=== PATIENT | female | born 1940 | race Caucasian/White ===

== ENCOUNTER 2018-08-03 23:20 | Inpatient (IN) | payer OTHER ==
[~2018-08-03] VITALS: Ht 144.8 cm; Wt 47.6 kg
[2018-08-03 23:22] VITALS: BP 193/83
[2018-08-03 23:43] LABS: HEMATOCRIT 29.5 % (37.0-47.0); HEMOGLOBIN 9.2 gm/dL (12.0-15.0); MCH 22.6 pg (26.0-34.0); MCHC 31.2 g/dL (28.0-37.0); MCV 72.5 fL (80.0-100.0); RBC 4.07 mil/uL (4.20-5.00); RDW 19.3 % (10.5-14.5)
[2018-08-03 23:48] LABS: CREATININE 1.2 mg/dL (0.6-1.0); POTASSIUM 3.6 mmol/L (3.5-5.1)
[2018-08-03 23:53] LABS: BE(vivo) 4.3 mmol/L (-2 to +3); HCO3 29.1 mmol/L (22.0-26.0); PCO2 44.7 mmHg (35.0-45.0); PO2 246.5 mmHg (80.0-100.0); pH 7.432 (7.360-7.450); sO2 99.6 % (92.0-98.0)
[2018-08-03 23:55] LABS: TROPONIN-I 0.12 ng/mL (<0.06)
[2018-08-04 02:10] VITALS: BP 156/62
[2018-08-04] MEDS ORDERED: CELEXA20 MG PO (02:40)
[2018-08-04] MEDS ORDERED: LASIX 20 MG TAB20 MG PO (02:50)
[2018-08-04] MEDS ORDERED: ASPIR 8181 MG PO (02:50)
[2018-08-04] MEDS ORDERED: PRESERVISION L1 EACH PO (02:50)
[2018-08-04] MEDS ORDERED: STIOLTO RESPIMAT4 GM PO (02:51)
[2018-08-04] MEDS ORDERED: VITAMIN D1000 UNI1 PO (02:51)
[2018-08-04] MEDS ORDERED: VENTOLIN HFA 1818 GM INH (02:51)
[2018-08-04] MEDS ORDERED: CULTURELLE1 EACH PO (02:52)
[2018-08-04] MEDS ORDERED: CENTRUM SILVER1 EAC2 PO (02:52)
[2018-08-04] MEDS ORDERED: PAXIL10 MG PO (02:52)
[2018-08-04] MEDS ORDERED: SUPER B-50 COM1 EACH PO (02:52)
--- NOTE | 2018-08-04 03:32 | NUR ---
PATIENTS CARES WERE ASSUMED AT [facility]PRON 0300 FROM ER. PATIENT WAS ASSESSED ANDADMITTED TO THE FLOOR. PATIENT STATES SHE ONLY HAS PAIN IN HER LEFT ANKLE RATES 2/10. HOURLY ROUNDING WAS DONE. YELLOW SOCKES WERE GIVEN. BED IS IN LOW AND LOCKED POSITION. THE BED ALARM IS ON. PAPER WORK IS SIGNED.
[2018-08-04 03:37] VITALS: BP 152/56
[2018-08-04 04:13] LABS: ALBUMIN 2.8 g/dL (3.4-5.0); DIRECT BILIRUBIN < 0.1 mg/dL (<0.1-0.3); SGOT 57 U/L (15-37); SGPT 22 U/L (30-65); TOTAL BILIRUBIN 0.4 mg/dL (<0.1-1.0); TOTAL PROTEIN 8.1 g/dL (6.4-8.2)
[2018-08-04 07:01] VITALS: BP 136/67
--- NOTE | 2018-08-04 07:56 | EKG ---
[address] [address] ELECTROCARDIOGRAM REPORT Name: HERACLIO NIEVES Room #: 200-I ADM IN M.R.#: [id number] ������������������ Admission: 08/04/18 ������������������ Attend Phys: Moses Pace MD Discharge: ������������������ Date of : 44 Report #: [id number] ����������������������������������������������������������������� [id number] THIS REPORT FOR: //name// [facility] ED Test Date: 2018-08-03 Test Time: 23:31:16 Pat Name: HERACLIO NIEVES Department: Room: 200 Gender: F Sales Development Consultant: KAYY : 1940 Requested By: Owen Montalvo Order Number: [id number] MD: Jaxon Koo Measurements Intervals [place] Rate: 108 P: 81 SD: 118 QRS: 19 QRSD: 135 T: 99 QT: 384 QTc: 515 Interpretive Statements Sinus tachycardia Left bundle branch block No previous ECG available for comparison Electronically Signed On 08-04-2018 7:56:25 CDT by Jaxon Koo [email or web address] ��������������������������������������������� <ELECTRONICALLY SIGNED> ���������������������������������������� By: Jaxon Koo MD, [facility] ��������������������������������������������� 08/04/18 0756 2331 2331 Jaxon Koo MD, FACC /EPI
--- NOTE | 2018-08-04 09:08 | NUR ---
PT TO RADIOLOGY FOR XRAY
[2018-08-04] MEDS ORDERED: TORSEMIDE20 MG PO (11:57)
--- NOTE | 2018-08-04 12:48 | 2DMMODE ---
[facility] [place] [address] 2 D/M-MODE ECHOCARDIOGRAM Name: HERACLIO NIEVES Room #: 200-I ADM IN .R.#: [id number] ������������� Admission: 08/04/18 ������������� Attend Phys: Moses Pace, Discharge: ��� ������������� ��� Date of : 44 Date of Service: 08/04/18 1247 �� Report #: [id number] �������� ��������������������������������������������[id number] THIS REPORT FOR: //name// APPROVED REPORT Study performed: 08/04/2018 12:05:08 EXAM: Comprehensive 2D, Doppler, and color-flow Echocardiogram Patient Location: Echo lab Room #: 200 Status: routine BSA: 1.38 HR: 91 bpm BP: 136/67 mmHg Rhythm: Pacemaker Other Information Study Quality: Adequate Indications Short of breath, question CHF, elevated troponin. Hx: TAVR and pacemaker. 2D Dimensions RVDd: 29.87 mm IVSd: 15.59 (7-11mm) LVDd: 34.33 mm PWd: 15.38 (7-11mm) LVDs: 26.69 (25-40mm) Aortic Root: 29.30 mm Volumes Left Atrial Volume (Systole) Single Plane 4CH: 52.71 mL Single Plane 2CH: 69.91 mL LA ESV Index: 47.00 mL/m2 Aortic Valve AoV Peak Erwin.: 2.88 m/s AO Peak Gr.: 33.21 mmHg LVOT Max P.49 mmHg AO Mean Gr.: 18.19 mmHg AO V2 Mean: 2.00 m/s LVOT Max V: 1.06 m/s AO V2 VTI: 52.18 cm Mitral Valve MV Decel. Time: 248.32 ms [facility] [address] [place] [address] 2 D/M-MODE ECHOCARDIOGRAM Name: HERACLIO NIEVES Room #: 200-I [facility] IN [facility]#: [id number] ������������� Admission: 08/04/18 ������������� Attend Phys: Moses Pace, Discharge: ��� ������������� ��� Date of : 44 Date of Service: 08/04/18 1247 �� Report #: [id number] �������� ��������������������������������������������[id number] MV PHT: 72.01 ms MVA (PHT): 3.07 cm2 IVRT: 73.82 ms Pulmonary Valve PV Peak Erwin.: 1.00 m/s PV Peak Gr.: 4.03 mmHg Pulmonary Vein P Vein S: 0.51 m/s P Vein D: 0.33 m/s P Vein S/D Ratio: 1.55 Tricuspid Valve TR Peak Erwin.: 2.93 m/s RAP Estimate: 10.00 mmHg TR Peak Gr.: 34.31 mmHg PA Pressure: 44.00 mmHg Left Ventricle The left ventricle is normal size. There is normal LV segmental wall motion. Moderate concentric left ventricular hypertrophy. Left ventricular systolic function is normal. LVEF is 50-55%. Mild diastolic dysfunction is present (impaired relaxation pattern). Right Ventricle The right ventricle is normal size. The right ventricular systolic function is normal. Atria Left atrium is moderately dilated. The right atrium size is normal. Pacemaker lead is present in the right atrium. Aortic Valve History of TAVR 10 weeks ago. No valve information available. Max pressure gradient through the valve is 33mmHg and the mean is 18mmHg. Trace to mild aortic regurgitation. Mitral Valve Heavily calcified annulus with restricted excursion of the leaflets. There is no mitral valve regurgitation noted. Moderate mitral stenosis with a mean pressure gradient of 12mmHg. Tricuspid Valve The tricuspid valve is normal in structure. Trace to mild tricuspid regurgitation. Estimated PAP is 40-45mmHg. [address] [address] 2 D/M-MODE ECHOCARDIOGRAM Name: HERACLIO NIEVES Room #: 200-I [facility] IN ..#: [id number] ������������� Admission: 08/04/18 ������������� Attend Phys: Moses Pace, Discharge: ��� ������������� ��� Date of : 44 Date of Service: 08/04/18 1247 �� Report #: [id number] �������� ��������������������������������������������[id number] Pulmonic Valve The pulmonary valve is normal in structure. There is no pulmonic valvular regurgitation. Great Vessels The aortic root is normal in size. Ascending aorta is not well visualized. IVC is normal in size and collapses >50% with inspiration. Pericardium There is no pericardial effusion. <Conclusion> The left ventricle is normal size. LVEF is 50-55%. Left atrium is moderately dilated. The right atrium size is normal. Pacemaker lead is present in the right atrium. 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 No valve information available. Max pressure gradient through the valve is 33mmHg and the mean is 18mmHg. Trace to mild aortic regurgitation. Heavily calcified annulus with restricted excursion of the leaflets. There is no mitral valve regurgitation noted. Moderate mitral stenosis with a mean pressure gradient of 12mmHg. The tricuspid valve is normal in structure. Trace to mild tricuspid regurgitation. Estimated PAP is 40-45mmHg. The pulmonary valve is normal in structure. There is no pericardial effusion. ��������������������������������������������� <ELECTRONICALLY SIGNED> ���������������������������������������� By: Lauri Syed MD ��������������������������������������������� 08/04/18 1247 1247 1247 Lauri Syed MD /INF
[2018-08-04 12:55] VITALS: BP 136/67
--- NOTE | 2018-08-04 14:54 | NUR ---
met with sylvia who is planned dc today if can have her oxygen fixed prior to leaving. Patient reports she has oxygen at home but cannot recall agency. She reports her family is working on getting her oxygen fixed and CM is not needed. Patient reports her grandson working on issue and she was agreeable to cm calling [employer]. Grandson Erick is not working on this issue but reports his other grandmother is working on it and he doesnt know name of company but CM can call Mariela. Left Mariela a message. Patient requested to see CM and reports her friend working on oxygen and she reports do not need to get involved apt with company at 1530 today. She gave me number for friend Khadra [phone] who reports oxygen company is [employer] and do not need to get involved apt already set. Updated RN.
== END 2018-08-04 17:11 | disposition home or self-care (01) | DRG 189 ==
LOC: ER 23:20 → 2N 08-04 00:55 → EROBS 08-04 00:55 → 2N 08-04 02:10
PROVIDERS: Emergency Medicine; Nurse Practitioner Acute Care; ADMIT Internal Medicine
DX: J96.21 Acute and chronic respiratory failure with hypoxia (principal); N17.9 Acute kidney failure, unspecified; I13.0 Hypertensive heart and chronic kidney disease with heart failure and stage 1 through stage 4 chronic kidney disease, or unspecified chronic kidney disease; J44.9 Chronic obstructive pulmonary disease, unspecified; I10 Essential (primary) hypertension; I16.0 Hypertensive urgency; F41.9 Anxiety disorder, unspecified; I49.5 Sick sinus syndrome; I50.9 Heart failure, unspecified; N18.9 Chronic kidney disease, unspecified; D64.9 Anemia, unspecified; Z99.81 Dependence on supplemental oxygen; Z95.0 Presence of cardiac pacemaker; Z95.2 Presence of prosthetic heart valve; Z79.82 Long term (current) use of aspirin; Z79.899 Other long term (current) drug therapy; Z88.8 Allergy status to other drugs, medicaments and biological substances; Z88.0 Allergy status to penicillin; Z82.49 Family history of ischemic heart disease and other diseases of the circulatory system; Z87.891 Personal history of nicotine dependence; Z90.89 Acquired absence of other organs
CPT/HCPCS: 10081